=== PATIENT | female | born 1990 | race African-American/Black ===

== ENCOUNTER 2019-06-27 00:45 | Emergency (ER) | payer SELFPAY ==
[~2019-06-27] VITALS: Ht 170.2 cm; Wt 62.0 kg
[2019-06-27] MEDS ORDERED: LIDOCAINE HCL 2% JELLY 5ML TOP ONE (01:00)
[2019-06-27] MEDS ORDERED: DOCUSATE SODIUM 100MG CAPSULE PO ONE (01:15)
[2019-06-27] MEDS ORDERED: IBUPROFEN 600MG TABLET PO ONE (01:15)
[2019-06-27 01:35] VITALS: BP 129/79
== END 2019-06-27 01:35 | disposition home or self-care (01) ==
LOC: ER 00:45
DX: K64.4 Residual hemorrhoidal skin tags (principal); K59.00 Constipation, unspecified; F31.9 Bipolar disorder, unspecified
CPT/HCPCS: 99284; Z7610